=== PATIENT | male | born 1945 | race Caucasian/White ===

== ENCOUNTER 2017-10-07 08:00 | Outpatient (CLI) | payer MEDICARE, OTHER | END 2017-10-07 08:01 | disposition home or self-care (01) | LOC: LAB.S 08:00 | PROVIDERS: ATTEND Urology | DX: R97.20 Elevated prostate specific antigen [PSA] (principal) | CPT/HCPCS: 36415; 84153 ==

== ENCOUNTER 2018-05-05 10:53 | Outpatient (CLI) | payer MEDICARE, OTHER ==
[2018-05-05 18:28] LABS: PSA FREE 2.154 ng/mL (0.16-2.81)
[2018-05-05 18:29] LABS: PSA TOTAL 13.705 ng/mL (0.000-2.000)
== END 2018-05-05 10:54 ==
LOC: LAB.S 10:53
PROVIDERS: ATTEND Urology
DX: R97.20 Elevated prostate specific antigen [PSA] (principal)
CPT/HCPCS: 36415; 84154

== ENCOUNTER 2019-05-11 09:37 | Outpatient (CLI) | payer MEDICARE, OTHER | END 2019-05-11 09:38 | disposition home or self-care (01) | LOC: LAB.S 09:37 | PROVIDERS: ATTEND Urology | DX: N40.0 Benign prostatic hyperplasia without lower urinary tract symptoms (principal) | CPT/HCPCS: 36415; 84153 ==

== ENCOUNTER 2019-07-01 14:44 | Outpatient (CLI) | payer MEDICARE, OTHER | END 2019-07-01 14:45 | disposition home or self-care (01) | LOC: LAB.S 14:44 | PROVIDERS: ATTEND Urology | DX: R31.0 Gross hematuria (principal) | CPT/HCPCS: 36415; 82565; 84520 ==

== ENCOUNTER 2019-07-07 10:49 | Outpatient (CLI) | payer MEDICARE, OTHER ==
[2019-07-07] MEDS ORDERED: IOVERSOL 320 100 ML VIAL IVP ONE (15:27)
--- NOTE | 2019-07-07 15:31 | CT Report ---
Reason: GROSS HEMATURIA Procedure Date: 07/07/2019 Accession Number: [id number] / [id number] Procedure: CT - IVP CPT Code: Final Report FULL RESULT: EXAM: CT ABDOMEN AND PELVIS WITHOUT AND WITH CONTRAST (CT IVP) EXAM DATE: 07/07/2019 11:18 AM. CLINICAL HISTORY: Gross hematuria. COMPARISONS: None. TECHNIQUE: Routine helical imaging was performed through the kidneys, ureters and bladder in the precontrast, postcontrast and delayed phase. IV Contrast: OPTI 320 100ML. Reconstructions: Coronal and sagittal. In accordance with CT protocol optimization, one or more of the following dose reduction techniques were utilized for this exam: automated exposure control, adjustment of mA and/or KV based on patient size, or use of iterative reconstructive technique. FINDINGS: Lung Bases: Unremarkable. Liver: Normal. No masses. Gallbladder/Bile Ducts: Unremarkable. Spleen: Few scattered punctate parenchymal calcifications consistent with incidental granulomata. Otherwise normal. Pancreas: Normal. Adrenal Glands: Normal. Kidneys/Bladder: Right Kidney/Ureter: No renal or ureteral stones. No hydronephrosis or hydroureter. No masses. Left Kidney/Ureter: 4 mm nonobstructing left lower pole nephrolithiasis. No hydronephrosis or hydroureter. No masses. Bladder: No stones. Mild trabeculation of the superior wall. Peritoneal Cavity/Bowel: Normal. No free fluid, free air or adenopathy. No masses or acute inflammatory process. Pelvic Organs: Enlargement of the prostate gland measuring 6 x 8.5 x 7.5 cm (AP x SI x ML). Vasculature: No aneurysms or other significant abnormality. Bones: No significant abnormality. Other: None. IMPRESSION: 1. 4 mm nonobstructive left lower pole nephrolithiasis. 2. Enlargement of the prostate gland with probable mild secondary bladder wall trabeculation. [facility]
== END 2019-07-07 10:50 | disposition home or self-care (01) ==
LOC: DI 10:49
PROVIDERS: ATTEND Urology
DX: N20.0 Calculus of kidney (principal); N40.0 Benign prostatic hyperplasia without lower urinary tract symptoms; R31.0 Gross hematuria
CPT/HCPCS: 74178

== ENCOUNTER 2021-01-30 08:26 | Outpatient (CLI) | payer MEDICARE, OTHER | END 2021-01-30 08:27 | disposition home or self-care (01) | LOC: LAB.S 08:26 | PROVIDERS: ATTEND Urology | DX: R97.20 Elevated prostate specific antigen [PSA] (principal) | CPT/HCPCS: 36415; 84153 ==

== ENCOUNTER 2022-01-04 09:19 | Outpatient (CLI) | payer MEDICARE, OTHER ==
[2022-01-04 14:44] LABS: EOSINOPHILS # (AUTO) 0.1 10^3/uL (0.0-0.7); EOSINOPHILS % (AUTO) 1.3 %; HCT - HEMATOCRIT 45.3 % (42.0-52.0); HGB - HEMOGLOBIN 14.5 g/dL (14.0-18.0); LYMPHOCYTES # (AUTO) 1.2 10^3/uL (1.5-3.5); MEAN CORPUSCULAR HEMOGLOBIN 31.1 pg (27.0-31.0); MEAN CORPUSCULAR VOLUME 97.2 fL (80.0-94.0); MEAN PLATELET VOLUME 10.6 fL (7.4-11.4); MONOCYTES # (AUTO) 0.3 10^3/uL (0.0-1.0); MONOCYTES % (AUTO) 8.1 %; NEUTROPHILS # (AUTO) 2.4 10^3/uL (1.5-6.6); NEUTROPHILS % (AUTO) 60.3 %; PLT - PLATELET COUNT 174 10^3/uL (130-450); RED BLOOD COUNT 4.66 10^6/uL (4.70-6.10); RED CELL DISTRIBUTION WIDTH 12.8 % (12.0-15.0)
[2022-01-04 16:25] LABS: THYROID STIMULATING HORMONE 0.53 uIU/mL (0.34-5.60)
[2022-01-04 16:32] LABS: ALBUMIN/GLOBULIN RATIO 1.6 (1.0-2.2); ALKALINE PHOSPHATASE 36 IU/L (42-121); ALT ALANINE AMINOTRANSFERASE 18 IU/L (10-60); AST ASPARTATE AMINOTRANSFERASE 23 IU/L (10-42); BILIRUBIN,TOTAL 1.1 mg/dL (0.2-1.0); BUN - BLOOD UREA NITROGEN 19 mg/dL (6-20); CALCIUM 8.9 mg/dL (8.5-10.3); CARBON DIOXIDE - CO2 26 mmol/L (21-32); CHLORIDE 105 mmol/L (101-111); CHOL/HDL RATIO 2.6 (<5.0); CHOLESTEROL 161 mg/dL; CREATININE 1.1 mg/dL (0.6-1.2); GFR - MDRD 65 (>89); GLUCOSE 92 mg/dL (70-100); HDL CHOLESTEROL 63 mg/dL; LDL CHOLESTEROL,CALCULATED 89 mg/dL; LDL/HDL RATIO 1.4 (<3.6); POTASSIUM 3.9 mmol/L (3.5-5.0); SODIUM 139 mmol/L (135-145); TOTAL PROTEIN 6.5 g/dL (6.7-8.2); TRIGLYCERIDES 46 mg/dL; VLDL CHOLESTEROL 9 mg/dL
== END 2022-01-04 09:20 | disposition home or self-care (01) ==
LOC: LAB.S 09:19
PROVIDERS: ATTEND Internal Medicine
DX: E78.5 Hyperlipidemia, unspecified (principal); Z51.81 Encounter for therapeutic drug level monitoring; E04.9 Nontoxic goiter, unspecified
CPT/HCPCS: 36415; 80053; 80061; 83721; 84443; 85025

== ENCOUNTER 2022-08-02 07:46 | Outpatient (CLI) | payer MEDICARE, OTHER | END 2022-08-02 07:47 | disposition home or self-care (01) | LOC: LAB.S 07:46 | PROVIDERS: ATTEND Urology | DX: R97.20 Elevated prostate specific antigen [PSA] (principal) | CPT/HCPCS: 36415; 84153 ==